=== PATIENT | male | born 1995 | race Caucasian/White ===

== ENCOUNTER 2024-01-26 08:56 | Emergency (ER) | payer BC, SELFPAY ==
[2024-01-26] VITALS (23 sets, daily range): BP systolic 108–121; BP diastolic 69–87; PULSE 46–67; RESP 20; TEMP 36.2; O2SAT 96–100; BMI 20.8
--- NOTE | 2024-01-26 10:06 | ED_ITS ---
HPI - General Adult General Chief complaint: Allergic Reaction Stated complaint: Chest pain, throat pain Time Seen by Provider: 01/26/24 10:02 History of Present Illness HPI narrative: 28-year-old male with a history of depression and possibly anxiety (recently started on sertraline). According to records from [facility] care link he was seen on 01/09. Records indicate he had been struggling to depression for years- lack of motivation, fatigue, sleepiness, poor eating patterns. Pulse rate was 54 during the clinic visit. He was started on sertraline 50 mg daily. He is here with his fiancee. He does note that he gets occasional pains in his chest off and on perhaps every week or every 2 weeks for the past year or so. This morning he had a different kind of chest pain that was more intense and more concerning. He says he has been generally very tired and sleepy from his depression. He did wake up his this morning and took his sertraline this morning when his fiancee gave it to him. After that he went back to bed. He was subsequently woken from sleep with a pain in his chest and up into his throat. He says it felt like needles poking into his chest. It is more intense than his ?usual? chest pains. No other symptoms. No pain with breathing. No palpitations. No dizziness or fainting. No nausea. No abdominal pain. The pain does not radiate through to his back. The pain is not ripping and tearing. No radiation down his arm or up to his jaw. No fever. Related Data Home Medications ?Medication ?Instructions ?Recorded ?Confirmed sertraline 50 mg tablet 50 mg PO QAM 01/26/24 01/26/24 Allergies Allergy/AdvReac Type Severity Reaction Status Date / Time No Known Drug Allergies Allergy Verified 01/26/24 08:59 Exam Narrative: Exam Narrative: Constitutional: Appears well-developed and well-nourished. Alert. Conversant. Non toxic. HENT: Head: Atraumatic. Nose: Nose normal. Mouth/Throat: Oral mucosa is clear and moist. no trismus. Pharynx normal. Tonsils symmetric. No tonsillar enlargement, erythema, or exudate. Eyes: Conjunctivae normal. EOM normal. Pupils equal, round, and reactive to light. No scleral icterus. Neck: Normal range of motion. Neck supple. No tracheal deviation present. No JVD Cardiovascular: Normal rate, regular rhythm. No gallop. No friction rub. No murmur heard. Symmetric radial and PT artery pulses Pulmonary/Chest: Effort normal. No stridor. No respiratory distress. No wheezes. No rales. No rhonchi . No tenderness. Abdominal: Soft. Bowel sounds normal. No distension. No mass. No tenderness. No rebound. No guarding. Musculoskeletal: RUE: Normal range of motion. No tenderness. No deformity LUE: Normal range of motion. No tenderness. No deformity RLE: Normal range of motion. No edema. No tenderness. No deformity LLE: Normal range of motion. No edema. No tenderness. No deformity Neurological: Alert and oriented to person, place, and time. Normal strength. CN II-VII intact. No sensory deficit. GCS eye subscore is 4. GCS verbal subscore is 5. GCS motor subscore is 6. Normal coordination Skin: Skin is warm and dry. No rash noted. No pallor. Normal capillary refill. Psychiatric: Normal mood. Normal affect. Const: Vital Signs, click to edit/add: Vital Signs - 24 hr 01/26/24 09:00 01/26/24 09:11 01/26/24 09:12 Temperature 97.2 F L Pulse Rate 50 L 49 L Pulse Rate [Pulse Oximeter] 67 Respiratory Rate 20 Blood Pressure 114/87 Blood Pressure [Ri ght Upper Arm] 108/69 Pulse Oximetry 98 100 [facility] 01/26/24 09:15 01/26/24 09:21 01/26/24 09:30 Temperature Pulse Rate 49 L 51 L 51 L Pulse Rate [Pulse Oximeter] Respiratory Rate Blood Pressure 120/78 Blood Pressure [Ri ght Upper Arm] Pulse Oximetry 99 100 99 [facility] 01/26/24 09:42 01/26/24 09:45 01/26/24 10:00 Temperature Pulse Rate 51 L 52 L 48 L Pulse Rate [Pulse Oximeter] Respiratory Rate Blood Pressure 116/81 Blood Pressure [Ri ght Upper Arm] Pulse Oximetry 98 97 98 [facility] 01/26/24 10:01 01/26/24 10:02 01/26/24 10:15 Temperature Pulse Rate 51 L 57 L 51 L Pulse Rate [Pulse Oximeter] Respiratory Rate Blood Pressure 121/84 Blood Pressure [Ri ght Upper Arm] Pulse Oximetry 97 98 98 Oxygen Delivery Me thod 01/26/24 10:22 01/26/24 10:30 01/26/24 10:42 Temperature Pulse Rate 51 L 53 L 47 L Pulse Rate [Pulse Oximeter] Respiratory Rate Blood Pressure 118/85 112/75 Blood Pressure [Ri ght Upper Arm] Pulse Oximetry 97 98 99 Oxygen Delivery Me thod 01/26/24 10:45 01/26/24 11:00 01/26/24 11:01 Temperature Pulse Rate 47 L 46 L 47 L Pulse Rate [Pulse Oximeter] Respiratory Rate Blood Pressure 111/74 Blood Pressure [Ri ght Upper Arm] Pulse Oximetry 97 98 96 Oxygen Delivery Me thod 01/26/24 11:15 01/26/24 11:21 01/26/24 11:30 Temperature Pulse Rate 48 L 48 L 55 L Pulse Rate [Pulse Oximeter] Respiratory Rate Blood Pressure 114/72 Blood Pressure [Ri ght Upper Arm] Pulse Oximetry 97 97 97 Oxygen Delivery Me thod 01/26/24 11:41 01/26/24 11:45 Temperature Pulse Rate 50 L 51 L Pulse Rate [Pulse Oximeter] Respiratory Rate Blood Pressure 114/79 Blood Pressure [Ri ght Upper Arm] Pulse Oximetry 97 98 Oxygen Delivery Me thod Course Vital Signs Vital signs: Initial Vital Signs Temperature 97.2 F L 01/26/24 09:00 Temperature Source Temporal Artery Scan 01/26/24 09:00 Pulse Rate 67 01/26/24 09:00 Pulse Rhythm Regular 01/26/24 09:00 Pulse Strength 3+ Normal 01/26/24 09:00 Respiratory Rate 01/26/24 09:00 Blood Pressure 108/69 01/26/24 09:00 Blood Pressure Mean 82 01/26/24 09:00 Blood Pressure Position Sitting 01/26/24 09:00 Pulse Oximetry 98 01/26/24 09:00 Oxygen Delivery Method Room Air 01/26/24 09:00 Vital Signs Temperature 97.2 F L 01/26/24 09:00 Pulse Rate 67 01/26/24 09:00 Respiratory Rate 20 01/26/24 09:00 Blood Pressure 108/69 01/26/24 09:00 Pulse Oximetry 98 01/26/24 09:00 Oxygen Delivery Method Room Air 01/26/24 09:00 Temperature 97.2 F L 01/26/24 09:00 Pulse Rate 51 L 01/26/24 11:45 Respiratory Rate 20 01/26/24 09:00 Blood Pressure 114/79 01/26/24 11:41 Pulse Oximetry 98 01/26/24 11:45 Oxygen Delivery Method Room Air 01/26/24 09:00 Medical Decision Making MDM Narrative Medical decision making narrative: This patient presents to the ER today for evaluation of chest pain the spent presents since this morning after he woke up. Differential was broad. No evidence of palpitations, syncope or other cardiac dysrhythmia. We considered possible ACS, however workup with EKG and troponin is negative. HEART score is1. Given time since onset of symptoms, I do not think the patient needs to be admitted for further sets of enzymes. EKG shows no evidence for pericarditis. Clinical presentation not suggestive of myocarditis. Chest x-ray shows no evidence for pneumonia, pneumothorax, pulmonary edema, pleural effusion, rib fracture, cardiomegaly. Mediastinum is normal on the x-ray. The patient has no ripping or tearing pain through to the back and has symmetric pulses on exam, no other acute neuro findings so I doubt aortic dissection. Risk of radiation and contrast exposure would outweigh the benefit of CT angiogram. We considered PE for this patient. Overall very low risk and negative by PERC. No wheezing or bronchospasm to suggest COPD/asthma. No signs of chest wall cellulitis, shingles, injury. He did eat [employer] for dinner last night and he does not normally eat spicy or greasy food. Wonder if this could possibly be acid reflux related to that. No upper abdominal pain to suggest biliary colic. With reasonable clinical confidence, I think the patient is safe for outpatient follow up. Discussed return precautions. Questions answered. Patient voices comfort with the plan. Lab Data Labs: Lab Results 01/26/24 Range/Units 10:35 WBC 4.79 (4.50-11.00) K/uL RBC 4.82 (4.30-5.90) m/uL Hgb 13.9 (13.5-17.5) gm/dL Hct 42.1 (37.0-53.0) % MCV 87 (80-100) fL MCH 29 (26-34) pg MCHC 33 (32-36) gm/dL RDW Coeff of Melissa 12.5 (11.5-15.5) % Plt Count 220 (140-440) K/uL Neut % (Auto) 59.7 (42.0-72.0) % Lymph % (Auto) 30.7 (20-44) % [place] % (Auto) 7.7 (0.0-11.0) % Eos % (Auto) 1.3 (0.0-7.0) % Baso % (Auto) 0.6 (0.0-3.0) % Neut # (Auto) 2.86 (1.7-7.0) K/uL Lymph # (Auto) 1.47 (0.90-2.90) K/uL [place] # (Auto) 0.40 (0.00-0.90) K/UL Eos # (Auto) 0.06 (0.00-0.50) K/uL Baso # (Auto) 0.03 (0.00-0.30) K/uL Abs Immat Gran (auto) 0.00 (0.00-0.30) K/uL Imm/Tot Granulo (auto) 0.0 % Sodium 139 (135-149) mmol/L Potassium 3.8 (3.6-5.1) mmol/L Chloride 104 (96-114) mmol/L Carbon Dioxide 28 (20-32) mmol/L Anion Gap 7 (7-15) mEq/L BUN 12 (5-24) mg/dL Creatinine 0.8 (0.5-1.5) mg/dL Estimated Creat Clear 113.78 Estimated GFR 124 ml/min Glucose 102 (60-115) mg/dL Calcium 8.9 (8.4-10.6) mg/dL TSH 4.870 H (0.270-4.200) uIU/mL Free T4 1.19 (0.70-1.85) ng/dL ECG Data Attestation: I personally reviewed and interpreted this ECG as follows: Interpretation: Sinus bradycardia. Rate: 49 MA: 162 QRS axis: Normal axis. ST segment/T wave: No ST segment elevation or depression. Concave upwards ST segments in the 4-V6 consistent with benign early repolarization. No ST depressions. QTc: 372 Discharge Plan Discharge Clinical Impression: Chest pain Patient Disposition: Home, Self-Care Condition: Stable Instructions: Chest Pain (DC) Additional Instructions: As we discussed, please come back to the ER right away if you have any worsening or concerning symptoms. Even if you continue to feel better, please follow-up with your regular doctor for recheck. You can ask your doctor about the sertraline and they can help you decide if this chest pain was a side effect and needs a med change. It is also possible that your chest pain could have been related to acid reflux in your esophagus. If you have recurrent symptoms you could talk to your doctor about starting on medicine to reduce stomach acid. Activity Level: No Restrictions Discharge Diet: Regular Prescriptions: No Action sertraline 50 mg tablet 50 mg PO QAM Follow Up/Referrals: Provider,Not a Local [Staff Physician] - Stand Alone Forms: [employer] Info Instructions
[2024-01-26 10:47] LABS: Basophils Absolute Auto 0.03 K/uL (0.00-0.30); Basophils Percent Auto 0.6 % (0.0-3.0); Eosinophils Absolute Auto 0.06 K/uL (0.00-0.50); Eosinophils Percent Auto 1.3 % (0.0-7.0); Hematocrit 42.1 % (37.0-53.0); Hemoglobin* 13.9 gm/dL (13.5-17.5); Lymphocytes Absolute Auto 1.47 K/uL (0.90-2.90); Lymphocytes Percent Auto 30.7 % (20-44); Mean Corpuscular HGB Conc 33 gm/dL (32-36); Mean Corpuscular Hemoglobin 29 pg (26-34); Mean Corpuscular Volume 87 fL (80-100); Monocytes Percent Auto 7.7 % (0.0-11.0); Neutrophils Absolute Auto 2.86 K/uL (1.7-7.0); Neutrophils Percent Auto 59.7 % (42.0-72.0); Platelet Count* 220 K/uL (140-440); RDW Coefficient of Variation % 12.5 % (11.5-15.5); Red Blood Count 4.82 m/uL (4.30-5.90); White Blood Count* 4.79 K/uL (4.50-11.00)
[2024-01-26 10:49] LABS: Slide Review Reflex No
[2024-01-26 10:58] LABS: Chloride* 104 mmol/L (96-114); Potassium* 3.8 mmol/L (3.6-5.1); Sodium* 139 mmol/L (135-149)
[2024-01-26 11:00] LABS: Creatinine* 0.8 mg/dL (0.5-1.5); Est. Creatinine Clearance* 113.78; Estimated Glomerular Filt Rate 124 ml/min
[2024-01-26 11:01] LABS: Anion Gap 7 mEq/L (7-15); Blood Urea Nitrogen* 12 mg/dL (5-24); Calcium* 8.9 mg/dL (8.4-10.6); Carbon Dioxide* 28 mmol/L (20-32); Glucose* 102 mg/dL (60-115)
[2024-01-26 11:58] LABS: Free T4 Free Thyroxine* 1.19 ng/dL (0.70-1.85)
--- NOTE | 2024-01-26 12:27 | ED.NURSE ---
Pt ready for discharge, resp even and unlabored, pt has no further questions for this nurse, pt skin is pink, warm and dry.
== END 2024-01-26 12:29 | disposition home or self-care (01) ==
PROVIDERS: Emergency Provider Emergency Medicine; PCP Student in an Organized Health Care Education/Training Program
DX: R07.9 Chest pain, unspecified (principal)
CPT/HCPCS: 36415; 80048; 84439; 84443; 84484; 85025; 99283; 99284